=== PATIENT | male | born 1960 | race Caucasian/White ===

== ENCOUNTER 2016-08-16 13:02 | Emergency (ER) | payer MEDICAID, OTHER ==
[~2016-08-16] VITALS: Ht 185.4 cm; Wt 89.0 kg
[~2016-08-16 13:02] MED LIST: ALBU18HF INHALATION; LEVO750T25 PO; NAPR-688 PO
[2016-08-16 13:06] VITALS: Ht 185.4 cm; Wt 89.0 kg
[2016-08-16] MEDS ORDERED: CEPH-443 PO (14:23)
[2016-08-16] MEDS ORDERED: BACTDS PO (14:23)
--- NOTE | 2016-08-16 15:41 | ERD ---
ER Documentation Chief Complaint Date/Time DATE: 08/16/16 TIME: 15:38 Chief Complaint left hand small wound, no redness or swelling HPI Patient is a 56-year-old male with thyroid disease who presents with a left hand infection. He says "it is MRSA". It has been there for the past 3 days. It is on the dorsal surface of his proximal third digit. He has no fevers. He said that he has friends that have MRSA infections as well. He said that he tried an antibiotic left over which was doxycycline which he started yesterday. He was working on a car when he skinned his knuckle 3 days ago. His primary doctor is Dr. South. ROS All systems reviewed and are negative except as per history of present illness. Medications Home Meds Active Scripts Cephalexin* (Keflex*) 500 Mg Capsule, 500 MG PO QID for 7 Days, CAP Prov:MICHELLE DAWSON MD 08/16/16 Sulfamethoxazole-Trimethoprim* (Bactrim* DS) 800-160 Mg Tab, 1 TAB PO BID for 7 Days, TAB Prov:MICHELLE DAWSON MD 08/16/16 Naproxen* (Naproxen*) 500 Mg Tablet, 500 MG PO BID Y for PAIN, #20 TAB Prov:JARROD MINAYA DO 01/21/16 Albuterol Sulfate* (Ventolin HFA*) 18 Gm Hfa.aer.ad, 2 PUFF INHALATION Q4H, #1 INHALER Prov:JARROD MINAYA DO 01/21/16 Levofloxacin* (Levaquin*) 750 Mg Tablet, 750 MG PO DAILY for 7 Days, TAB Prov:JARROD MINAYA DO 01/21/16 Allergies Allergies: Coded Allergies: No Known Drug Allergies (Verified Allergy, Mild, 01/21/16) PMhx/Soc History of Surgery: Yes (tonsillectomy) Anesthesia Reaction: No Hx Neurological Disorder: No Hx Respiratory Disorders: No Hx Cardiac Disorders: No Hx Psychiatric Problems: No Hx Miscellaneous Medical Probl: Yes (hypothyroidism, arthritis, HEP C) Hx Alcohol Use: No Hx Substance Use: Yes (heroin, hydrocone abuse) Hx Tobacco Use: Yes (1 pack/day) FmHx Family History: diabetes Physical Exam Vitals Vital Signs Date Time Temp Pulse Resp B/P Pulse Ox O2 Delivery O2 Flow Rate FiO2 08/16/16 13:06 98.1 77 20 115/74 99 Physical Exam Const: No acute distress Head: Atraumatic Eyes: Normal Conjunctiva ENT: Normal External Ears, Nose and Mouth. Neck: Full range of motion..~ No meningismus. Resp: Clear to auscultation bilaterally Cardio: Regular rate and rhythm, no murmurs Abd: Soft, non tender, non distended. Normal bowel sounds Skin: 1 x 1 cm area of ulceration to the proximal third digit on the dorsal surface with surrounding erythema, no abscess, no signs of flexor tenosynovitis Back: No midline or flank tenderness Ext: No cyanosis, or edema, full range of motion of the hands bilaterally without difficulty opening and closing the hand Neur: Awake and alert Psych: Normal Mood and Affect Procedures/MDM Smoking Cessation Therapy: Pt. was lectured for greater than 3 minutes on the health risks of continued smoking and the benefits of cessation. Patient is a 56-year-old male who smokes who presents with what appears to be a mild cellulitis of the dorsal surface of the proximal third digit. The patient will be given a prescription for Bactrim and Keflex for 1 week. I do not believe the patient requires further workup or admission to the hospital at this time. He does not require a hand surgeon at this time. There is no sign of flexor tenosynovitis. The patient will be discharged home and was instructed to stop smoking. Departure Diagnosis: Primary Impression: Cellulitis Site of cellulitis: extremity Site of cellulitis of extremity: upper extremity Laterality: left Qualified Code: L03.114 - Cellulitis of left upper extremity Condition: Fair Patient Instructions: Cellulitis Additional Instructions: Call your primary care doctor TOMORROW for an appointment during the next 1-2 days.See the doctor sooner or return here if your condition worsens before your appointment time. MICHELLE DAWSON MD Aug 16, 2016 15:40
== END 2016-08-16 14:25 | disposition home or self-care (01) ==
LOC: E/R 13:02
DX: L03.114 Cellulitis of left upper limb (principal); E03.9 Hypothyroidism, unspecified; F17.210 Nicotine dependence, cigarettes, uncomplicated
CPT/HCPCS: 99284

== ENCOUNTER 2016-09-13 01:26 | Emergency (ER) | payer MEDICAID, OTHER ==
[~2016-09-13] VITALS: Ht 185.4 cm; Wt 78.5 kg
[~2016-09-13 01:26] MED LIST changes: +BACTDS PO; +CEPH-443 PO
[2016-09-13 02:08] VITALS: Ht 185.4 cm; Wt 78.5 kg
[2016-09-13] MEDS ORDERED: BACTDS PO (03:49)
[2016-09-13] MEDS ORDERED: CEPH-443 PO (03:49)
[2016-09-13] MEDS ORDERED: IBUPROFEN 600 MG TAB PO ONE (04:00)
[2016-09-13 04:32] VITALS: BP 118/69; PULSE 78; RESP 18; TEMP 98
--- NOTE | 2016-09-13 14:29 | ERD ---
ER Documentation Chief Complaint Date/Time DATE: 09/13/16 TIME: 14:23 Chief Complaint BLE swelling, left leg pain HPI 56 year old male with a history of Hep C and hypothyroidism is presenting with about 3 days of redness, pain and swelling of the lower left leg. He was seen 3 weeksago for an abscess on his left hand and received 7 days of keflex and bactrim with improvement. Currently he has no fevers or chills. He complains of associated pain, 02/10. NO fevers or chills. No numbness or tingling. Ambulating without difficulty. ROS All systems reviewed and are negative except as per history of present illness. Medications Home Meds Active Scripts Sulfamethoxazole-Trimethoprim* (Bactrim* DS) 800-160 Mg Tab, 1 TAB PO BID for 10 Days, TAB Prov:JUANY PACHECO MD 09/13/16 Cephalexin* (Keflex*) 500 Mg Capsule, 500 MG PO QID for 10 Days, CAP Prov:JUANY PACHECO MD 09/13/16 Cephalexin* (Keflex*) 500 Mg Capsule, 500 MG PO QID for 7 Days, CAP Prov:MICHELLE DAWSON MD 08/16/16 Sulfamethoxazole-Trimethoprim* (Bactrim* DS) 800-160 Mg Tab, 1 TAB PO BID for 7 Days, TAB Prov:MICHELLE DAWSON MD 08/16/16 Naproxen* (Naproxen*) 500 Mg Tablet, 500 MG PO BID Y for PAIN, #20 TAB Prov:JARROD MINAYA DO 01/21/16 Albuterol Sulfate* (Ventolin HFA*) 18 Gm Hfa.aer.ad, 2 PUFF INHALATION Q4H, #1 INHALER Prov:JARROD MINAYA DO 01/21/16 Levofloxacin* (Levaquin*) 750 Mg Tablet, 750 MG PO DAILY for 7 Days, TAB Prov:JARROD MINAYA DO 01/21/16 Allergies Allergies: Coded Allergies: No Known Drug Allergies (Verified Allergy, Mild, 01/21/16) PMhx/Soc History of Surgery: Yes (tonsillectomy) Anesthesia Reaction: No Hx Neurological Disorder: No Hx Respiratory Disorders: No Hx Cardiac Disorders: No Hx Psychiatric Problems: No Hx Miscellaneous Medical Probl: Yes (HEP C; HYPOTHYROIDISM) Hx Alcohol Use: No Hx Substance Use: Yes (OPIATES) Hx Tobacco Use: Yes Smoking Status: Current every day smoker FmHx Family History: No diabetes Physical Exam Vitals Vital Signs Date Time Temp Pulse Resp B/P Pulse Ox O2 Delivery O2 Flow Rate FiO2 09/13/16 04:32 98.0 78 18 118/69 100 Room Air 09/13/16 02:08 97.5 69 18 123/71 100 Physical Exam Const: well appearing, nontoxic, no distress Head: Atraumatic Eyes: Normal Conjunctiva ENT: Normal External Ears, Nose and Mouth. Neck: Full range of motion. No meningismus. Resp: Clear to auscultation bilaterally Cardio: Regular rate and rhythm, no murmurs Abd: Soft, non tender, non distended. Normal bowel sounds Skin: No petechiae or rashes Back: No midline or flank tenderness Ext: No cyanosis. Erythema from left ankle to left mid galaviz with tenderness, edema and blanching. NO crepitus. Anterior low leg with abrasion, no drainage or fluctuance. Neur: Awake and alert Psych: Normal Mood and Affect Results 24 hrs Current Medications Medications (Trade) Dose Ordered Sig/Radha Route PRN Reason Start Time Stop Time Status Last Admin Dose Admin Ibuprofen (Motrin) 600 mg ONCE ONCE PO 09/13/16 04:00 09/13/16 04:01 DC 09/13/16 04:02 Procedures/MDM PAtient is presenting with cellulitis without evidence of necrotizing skin infection. There is no evidence of SJS. I do not suspect sepsis. HE is nontoxic , afebrile, and hemodynamically stabel. Area of erythema was outlined. He was given a prescription for keflex and bactrim. I advised he return in 24 hours if the erythema is worsening instead of improving on the antibiotics. Patient agreeable to the plan. Departure Diagnosis: Primary Impression: Cellulitis of left anterior lower leg Condition: Stable Patient Instructions: Cellulitis Referrals: SELIN GRIMES MD Additional Instructions: Return in 24 hours if your symptoms are getting worse or not any better. Otherwise complete her course of antibiotics and follow-up with your primary care doctor in 1-2 days. JUANY PACHECO MD Sep 13, 2016 14:29
== END 2016-09-13 04:34 | disposition home or self-care (01) ==
LOC: E/R 01:26
DX: L03.116 Cellulitis of left lower limb (principal); E03.9 Hypothyroidism, unspecified; F17.210 Nicotine dependence, cigarettes, uncomplicated
CPT/HCPCS: Z7502; Z7610; 99284

== ENCOUNTER 2016-10-06 13:28 | Emergency (ER) | payer MEDICAID ==
[~2016-10-06] VITALS: Ht 185.4 cm; Wt 78.5 kg
[2016-10-06 13:36] VITALS: Ht 185.4 cm; Wt 78.5 kg
--- NOTE | 2016-10-06 14:54 | RADRPT ---
PROCEDURE: US Lower extremity Venous. CLINICAL INDICATION: PAIN TECHNIQUE: Multiple sonographic images of the left lower extremity deep venous system was obtained utilizing grayscale, color-flow, compressive sonography and doppler imaging with augmentation. The images were reviewed on a PACS workstation. COMPARISON: None. FINDINGS: There is normal compressibility and flow within the left common femoral, deep femoral, superficial f emoral and popliteal veins. The deep veins the calf were incompletely visualized. IMPRESSION: No sonographic evidence for deep venous thrombosis in the left lower extremity. RPTAT: [facility] .Kamilla Moore MD, MD Date Time Electronically viewed and signed by .Kamilla Moore MD, on 10/06/2016 14:53 .M/
--- NOTE | 2016-10-06 15:04 | ERD ---
ER Documentation Chief Complaint Date/Time DATE: 10/06/16 TIME: 15:02 Chief Complaint wants to be checked for infection on lt leg HPI This 56-year-old male complains of some mild left leg redness. He was treated approximately 2 weeks ago for cellulitis of the galaviz. The redness and pain is resolved. He is concerned about the persistent left leg swelling. He is walking a lot. Denies any shortness of breath, fevers, abdominal pain, chest pain or shortness of breath. ROS All systems reviewed and are negative except as per history of present illness. Medications Home Meds Active Scripts Sulfamethoxazole-Trimethoprim* (Bactrim* DS) 800-160 Mg Tab, 1 TAB PO BID for 10 Days, TAB Prov:JUANY PACHECO MD 09/13/16 Cephalexin* (Keflex*) 500 Mg Capsule, 500 MG PO QID for 10 Days, CAP Prov:JUANY PACHECO MD 09/13/16 Cephalexin* (Keflex*) 500 Mg Capsule, 500 MG PO QID for 7 Days, CAP Prov:MICHELLE DAWSON MD 08/16/16 Sulfamethoxazole-Trimethoprim* (Bactrim* DS) 800-160 Mg Tab, 1 TAB PO BID for 7 Days, TAB Prov:MICHELLE DAWSON MD 08/16/16 Naproxen* (Naproxen*) 500 Mg Tablet, 500 MG PO BID Y for PAIN, #20 TAB Prov:JARROD MINAYA DO 01/21/16 Albuterol Sulfate* (Ventolin HFA*) 18 Gm Hfa.aer.ad, 2 PUFF INHALATION Q4H, #1 INHALER Prov:JARROD MINAYA DO 01/21/16 Levofloxacin* (Levaquin*) 750 Mg Tablet, 750 MG PO DAILY for 7 Days, TAB Prov:JARROD MINAYA DO 01/21/16 Allergies Allergies: Coded Allergies: No Known Drug Allergies (Verified Allergy, Mild, 01/21/16) PMhx/Soc History of Surgery: Yes (tonsillectomy) Anesthesia Reaction: No Hx Neurological Disorder: No Hx Respiratory Disorders: No Hx Cardiac Disorders: No Hx Psychiatric Problems: No Hx Miscellaneous Medical Probl: Yes (HEP C; HYPOTHYROIDISM) Hx Alcohol Use: No Hx Substance Use: Yes (OPIATES) Hx Tobacco Use: Yes Smoking Status: Current every day smoker Physical Exam Vitals Vital Signs Date Time Temp Pulse Resp B/P Pulse Ox O2 Delivery O2 Flow Rate FiO2 10/06/16 13:36 98.2 68 18 133/75 98 Physical Exam Const: [] Alert, [id number]. Head: Atraumatic Eyes: Normal Conjunctiva ENT: Normal External Ears, Nose and Mouth. Neck: Full range of motion..~ No meningismus. Resp: Clear to auscultation bilaterally Cardio: Regular rate and rhythm, no murmurs Abd: Soft, non tender, non distended. Normal bowel sounds Skin: No petechiae or rashes Back: No midline or flank tenderness Ext: No cyanosis, or edema. There is some minimal left galaviz swelling without pitting edema. There is some residual redness without warmth or erythema. Patient states that the redness has improved since taking antibiotics. There is no open wounds. Neur: Awake and alert Psych: Normal Mood and Affect Procedures/MDM Left lower extremity Doppler is negative for DVT. Patient presents with left leg swelling after being treated for cellulitis of his galaviz. I suspect this is dependent edema as the patient is walking a lot. I am recommending elevation at home and further observation. Patient should return for fevers, redness, new worsening symptoms with primary care doctor this week. The patient was stable with no new complaints during the ER course. Clinically, there is no current evidence to suggest meningitis, osteomyelitis, sepsis, acute abdomen, pneumonia, acute coronary syndrome, pulmonary embolism, or any other emergent condition appearing to require further evaluation or hospitalization. The patient should certainly return for any new or worsening symptoms per the aftercare instructions. They should otherwise follow-up with her primary care doctor for reevaluation this week. Departure Diagnosis: Primary Impression: Edema Edema type: unspecified Qualified Code: R60.9 - Edema, unspecified type Condition: Stable Patient Instructions: Peripheral Edema, Unilateral Additional Instructions: Ultrasound normal. Recommend elevation at home and limited walking.. Recheck for redness, fevers, new or worsening symptoms. SISSY MITCHELL MD Oct 06, 2016 15:04
== END 2016-10-06 15:25 | disposition home or self-care (01) ==
LOC: FTE 13:28
DX: R60.9 Edema, unspecified (principal); E03.9 Hypothyroidism, unspecified; F17.210 Nicotine dependence, cigarettes, uncomplicated
CPT/HCPCS: 93971; Z7502